=== PATIENT | female | born 1965 | race Caucasian/White ===

== ENCOUNTER 2016-08-14 02:22 | Emergency (ER) | payer SELFPAY ==
[~2016-08-14 02:22] MED LIST: BLEPH-105 ML OP; CYCLOBENZAPRINE10 M1 PO; DEXAMETHASONE2 M1 PO; DOXYCYCLINE HY100 M5 PO; LEVAQUIN500 M1 PO; NO MEDICATIONS; NORCO 5-325 TA1 EACH PO; PREDNISONE20 M1 PO; PROMETHAZINE-C118 ML PO; TAMIFLU75 MG PO; TRAMADOL HCL50 M2 PO; VICODIN 5/500 T1 TAB PO
[2016-08-14 03:06] LABS: BASO % 0.5 % (0-2); EOSINOPHIL ABSOLUTE COUNT 0.1 tho/cmm (0.0-0.7); HGB-HEMOGLOBIN 11.8 gm/dl (12.0-15.5); IMMATURE GRANULOCYTES ABSOLUTE 0.01 tho/cmm (0-0.03); IMMATURE GRANULOCYTES PERCENT 0.2 % (0-0.3); LYMPH % 50.4 % (20-45); LYMPH ABSOLUTE COUNT 3.3 tho/cmm (0.8-4.5); MCH (MEAN CORPUSCULAR HGB) 28.4 pg (28.0-32.0); MCHC MEAN CORPUSCULAR HGB CONC 32.8 % (32.0-36.0); MCV (MEAN CELL VOLUME) 86.7 fl (82.0-96.0); MEAN PLATELET VOLUME 10.4 cmc (9.4-12.4); MONO % 5.1 % (0-12); MONOCYTE ABSOLUTE COUNT 0.3 tho/cmm (0.0-1.2); NEUTROPHIL ABSOLUTE COUNT 2.7 tho/cmm (1.6-8.0); NEUTROPHIL-AUTOMATED 2.7 tho/cmm (1.6-8.0); NEUTROPHILS % 41.8 % (40-80); PLATELET COUNT 227 tho/cmm (150-450); RED BLOOD COUNT 4.15 mil/cmm (4.00-5.20); RED CELL DISTRIBUTION WIDTH 13.7 % (12.4-16.4); WHITE BLOOD COUNT 6.5 tho/cmm (4.0-10.0)
[2016-08-14 03:23] LABS: ALB/GLOB RATIO 0.8 (0.8-2.0); ALBUMIN 3.2 g/dl (3.5-5.0); ALKALINE PHOSPHATASE 79 U/L (33-138); ALT/SGPT 124 U/L (12-78); BILIRUBIN,TOTAL 0.3 mg/dl (0-1.5); BLOOD UREA NITROGEN 17 mg/dl (6-24); CARBON DIOXIDE-VENOUS 26 mmol/L (22-32); CHLORIDE 109 mmol/l (96-110); CREATININE 0.62 mg/dl (0.50-1.10); GLUCOSE 102 mg/dL (70-110); SODIUM 141 mmol/L (135-145); eGFR VALUE FOR BLACK >90 mL/Min
[2016-08-14 03:28] LABS: ANION GAP 10 mmol/L (0-20); AST/SGOT 87 U/L (10-40); POTASSIUM 4.1 mmol/L (3.7-5.1)
[2016-08-14] MEDS ORDERED: IBUPROFEN600 M1 PO (04:50)
[2016-08-14] MEDS ORDERED: VENTOLIN HFA18 G2 INH (04:50)
[2016-11-16] MEDS ORDERED: PREDNISONE10 M1 PO (13:45)
[2016-11-16] MEDS ORDERED: ZITHROMAX250 M1 PO (13:45)
[2016-11-16] MEDS ORDERED: PROAIR HFA8.5 GM INH (13:45)
[2016-11-16] MEDS ORDERED: TUSSIN COUGH &118 M1 PO (13:47)
== END 2016-08-14 05:20 ==
LOC: EDMED 02:22
PROVIDERS: Emergency Medicine
DX: J42 Unspecified chronic bronchitis (principal); Z90.89 Acquired absence of other organs; Z98.890 Other specified postprocedural states; Z87.891 Personal history of nicotine dependence
CPT/HCPCS: J1885; Q9967